=== PATIENT | female | born 1970 | race Caucasian/White ===

== ENCOUNTER 2024-09-26 08:48 | Outpatient (AMB) | payer OTHER, SELFPAY ==
--- NOTE | 2024-09-26 09:02 | A.OFFPC_ITS ---
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 Care Intake Note: New patient visit Hospice Spiritual Care Coordinator Required: No Allergies No Known Allergies Allergy (Verified 09/26/24 09:02) Tobacco use date assessed: 09/26/24 Dental Screening Dental Screen Date: 09/26/24 Did you have a dental visit in the last 12 months?: No Did you have a dental problem in the last 6 months where you did not have access to dental care?: No Was dental information given to patient?: Patient has dentist HPI 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 General: States that she is frustrated with her weight. She is very careful with her diet and exercise and has a hard time losing weight and if anything, has been gaining weight. She does not like this. States that she has tried etzd-ooh-pnlccla supplements in his unable to lose weight. She follows a low carb diet. Psych: She was previously on Lexapro 20 mg and used Ativan only as needed a few times. States that for the last few months she has been off of Lexapro and would like to go back on this. It was very helpful for management of the anxiety and depression. Neuro: Has a history of migraines and follow up with [facility] neurology. Migraines were resolved with Lexapro. Endo: Has a history of hypothyroidism and is on levothyroxine 50 mcg daily. Compliant with vitamin-D as she has a history of vitamin-D deficiency. Mammo: Carleen 06/2024 Manager Program: follows with Carleen-perimenopausal [facility] Surgical History (Updated 09/26/24 @ 09:18 by Estefany Warner CMA) No pertinent past surgical history Family History (Updated 09/26/24 @ 09:17 by Estefany Warner CMA) Mother Hypothyroidism Father Heart failure Pacemaker Paternal Grandfather Pacemaker Social History (Updated 09/26/24 @ 09:19 by Estefany Warner CMA) Housing: House Alcohol intake: never Patient Tobacco Use Status: Never used Tobacco e-Cigarette/Vaping Use: Never Used Second Hand Smoke Exposure: No service: No Current occupational status: employed 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 1. Little interest or pleasure in doing things: not at all 2. Feeling down, depressed, or hopeless: not at all 3. Trouble falling or staying asleep, or sleeping too much: several days 4. Feeling tired or having little energy: several days 5. Poor appetite or overeating: not at all 6. Feeling bad about yourself - or that you are a failure or have let yourself or your family down: not at all 7. Trouble concentrating on things, such as reading the newspaper or watching television: not at all 8. Moving or speaking so slowly that other people could have noticed. Or the opposite - being so fidgety or restless that you have been moving around a lot more than usual: not at all 9. Thoughts that you would be better off or of hurting yourself in some way: not at all Total score: 2 Depression Screening Interpretation: Negative Depression Screening Done: Yes 47439 - PHQ-9 Billing: Yes Source: Developed by Drs. Wm Brizuela, Nataliia Ugalde, Baldomero Solis and colleagues, with an educational kei from [employer]. Thrive Questionnaire Date Thrive assessed: 09/25/24 I am a: Patient What is your living situation today?: I have a steady place to live Within the past 12 months, did the food you bought not last and you didn't have the money to get more?: Never true Within the past 12 months, did you worry whether your food would run out before you got money to buy more?: Never true Do you have trouble paying for medicines?: No Do you have trouble getting transportation to medical appointments?: No Do you have trouble paying your heating and electricity bill?: No Do you have trouble taking care of your child, family member or friend?: No Do you have trouble with day-to-day activities such as bathing, preparing meals, shopping, managing finances, etc.?: No Are you currently unemployed and looking for a job?: No Are you interested in more education?: I choose not to answer this question Please select the resources that you would like help with: None Currently or been in a relationship where the following occur: No concerns reported THRIVE Score: 0 AUDIT C Alcohol Use Questionnaire (AUDIT-C) 1. How often do you have a drink containing alcohol?: Never Total Score: 0 VIJAY-7 AMB Questionnaire VIJAY-7 Date VIJAY - 7 assessed: 09/26/24 Feeling nervous, anxious, or on edge: 0 = Not at all Not being able to stop or control worryin = Not at all Worrying too much about different things: 0 = Not at all Trouble relaxin = Not at all Being so restless that it is hard to sit still: 0 = Not at all Becoming easily annoyed or irritable: 0 = Not at all Feeling afraid as if something awful might happen: 0 = Not at all Total VIJAY-7 score (0-4 normal; 5-9 mild; 10-14 moderate; 15-21 severe): 0 Source: Developed by Drs. Wm Brizuela, Nataliia Ugalde, Baldomero Solis and colleagues, with an educational kei from [employer]. VIJAY-7 Assessment Billing VIJAY-7 Assessment Tool: VIJAY-7 Assessment 18093 Physical exam (Primary Care) Vital Signs: Last Vital Signs Pulse 78 09/26/24 09:12 Resp 12 09/26/24 09:12 BP 102/76 09/26/24 09:12 Pulse Ox 98 09/26/24 09:12 Oxygen Delivery Method Room Air 09/26/24 09:12 BMI result Body Mass Index 29.1 Tobacco/Smoking Status: Tobacco use Status Tobacco use date assessed 09/26/24 09/26/24 09:11 Patient Tobacco Use Status Never used Tobacco 09/26/24 09:19 e-Cigarette/Vaping Use Never Used 09/26/24 09:19 PHQ-9: PHQ-9 Score PHQ-9: Total score 2 09/26/24 09:23 Depression Screening Interpretation: Negative Thrive Assessment: Date of Thrive Assessment Date Thrive assessed 09/25/24 09/26/24 09:11 Currently or been in a relationship where the following occur: No concerns reported Const Orientation/consciousness: patient oriented x3 HENMT Ears: hearing grossly normal bilaterally Neck Thyroid: Thyroid normal Lymphatic: no lymphadenopathy noted Resp Auscultation: clear to auscultation bilaterally Cardio Rate: regular rate Rhythm: regular rhythm Heart sounds: S1 normal heart sound present and S2 normal heart sound present GI Inspection: Yes normal to inspection Palpation (GI): Soft to palpation and Other GI palpation findings present (nontender, no cva tenderness) Auscultation: normoactive bowel sounds Rectal Exam - Female: deferred Skin General skin exam: no rashes or lesions noted Neuro General: patient oriented x3, gait normal and no focal motor deficits Coding Level of Care Code Est Pt Level 4 (44068) Complex EM visit Add On G2211 Diagnoses Anxiety with depression F41.8 Migraines G43.909 Hypothyroid E03.9 Perimenopausal N95.1 Additional Codes VIJAY-7 Assessment Billing - VIJAY-7 Assessment Tool: VIJAY-7 Assessment 10132 ([id number]) PHQ-9 - 12038 - PHQ-9 Billing: Yes ([id number]) Assessment & Plan Assessment & Plan (1) Anxiety with depression: Code(s): F41.8 - Other specified anxiety disorders Category: Medical Plan: We will restart Lexapro. Discussed risks and benefits and adverse effects of this medication. (2) Migraines: Code(s): G43.909 - Migraine, unspecified, not intractable, without status migrainosus Category: Medical Plan: We will monitor and assess for improvement with the Lexapro. (3) Hypothyroid: Code(s): E03.9 - Hypothyroidism, unspecified Category: Medical Plan: TSH ordered. (4) Perimenopausal: Code(s): N95.1 - Menopausal and female climacteric states Category: Medical Plan: Following with gynecology. Plan Advised to contact her insurance plan for covered regarding prescription weight loss drugs. She will let me know. Offered referral to sales and marketing analyst but declines at this point. Orders: Orders Complete Blood Count Auto Diff Today E03.9 - Hypothyroidism, unspecified, F41.8 - Other specified anxiety disorders, G43.909 - Migraine, unspecified, not intractable, without status migrainosus, N95.1 - Menopausal and female climacteric states Lipid Panel Today E03.9 - Hypothyroidism, unspecified, F41.8 - Other specified anxiety disorders, G43.909 - Migraine, unspecified, not intractable, without status migrainosus, N95.1 - Menopausal and female climacteric states TSH reflex Free T4 Today E03.9 - Hypothyroidism, unspecified, F41.8 - Other specified anxiety disorders, G43.909 - Migraine, unspecified, not intractable, without status migrainosus, N95.1 - Menopausal and female climacteric states Magnesium Today E03.9 - Hypothyroidism, unspecified, F41.8 - Other specified anxiety disorders, G43.909 - Migraine, unspecified, not intractable, without status migrainosus, N95.1 - Menopausal and female climacteric states Comprehensive [place]. Panel Fast Today E03.9 - Hypothyroidism, unspecified, F41.8 - Other specified anxiety disorders, G43.909 - Migraine, unspecified, not intractable, without status migrainosus, N95.1 - Menopausal and female climacteric states Vitamin B12 and Folate Today E03.9 - Hypothyroidism, unspecified, F41.8 - Other specified anxiety disorders, G43.909 - Migraine, unspecified, not intractable, without status migrainosus, N95.1 - Menopausal and female climacteric states UA CC w/rflx Micro + Cult Today E03.9 - Hypothyroidism, unspecified, F41.8 - Other specified anxiety disorders, G43.909 - Migraine, unspecified, not intractable, without status migrainosus, N95.1 - Menopausal and female climacteric states, Z13.220 - Encounter for screening for lipoid disorders Medications: New escitalopram oxalate (Lexapro) take 1/2 tab po x 2 weeks then increase to 1 tab po daily 10 mg PO DAILY 90 tabs 1RF levothyroxine 50 mcg PO DAILY 90 tabs 2RF
[2024-09-26 09:12] VITALS: BP 102/76; PULSE 78; RESP 12; O2SAT 98; BMI 29.1
--- OUTSIDE RECORDS SUMMARY | 2024-09-26 09:33 | XMS_ITS | Clinical Summary ---
Author Organization [address] Building Address [address] [place] [phone] Phone Care Team Providers Care A Operator Name Role Phone Loraine Harris MD Primary Care Provider Allergies No known active allergies Medications levothyroxine (SYNTHROID, LEVOTHROID) 50 mcg tablet Take 1 Tablet by mouth every morning (before breakfast). 04/20/2023 Active escitalopram (LEXAPRO) 20 mg tablet Take 1 Tablet by mouth daily. 07/06/2022 Active vit C/vit E/lutein/min/om ega-3 (OCUVITE ORAL) Take by mouth. Active cholecalciferol (VITAMIN D-3) 50 mcg (2,000 unit) capsule Take 2,000 Units by mouth. 11/12/2016 Active Active Problems Problem Noted Date Diagnosed Date Depression 07/26/2024 Hyperlipemia 06/27/2020 Migraine syndrome 05/20/2017 Vitamin D deficiency 09/29/2015 Hypothyroid 09/28/2015 Low back pain 09/26/2015 TMJ (temporomandibular joint syndrome) 6 Immunizations Name Administration Dates Next Due Influenza Quadravalent, MDCK , 0.5ml, preservative free (Flucelvax) 6mo and older 07/06/2022,06/27/2020 Td Tetanus diptheria (Tdvax) 7yo and older 01/08 Surgical History Surgery Date Site/Laterality Comments TUBAL LIGATION 2004 PROCEDURE: HISTORICAL TUBAL LIGATION OTHER SURGICAL HISTORY PROCEDURE: HISTORICAL D&C; COMMENT: SAB in second trimester OTHER SURGICAL HISTORY 2003 Bilateral PROCEDURE: IMPLANT BREAST SILICONE/EQ; COMMENT: saline Medical History Medical History Date Comments Low back pain 09/26/2015 DX:Low back pain TMJ (temporomandibular joint syndrome) 09/26/2015 DX:TMJ (temporomandibular joint syndrome) BPPV (benign paroxysmal posi tional vertigo) DX:BPPV (benign paroxysmal p ositional vertigo) Hypothyroid 09/28/2015 DX:Hypothyroid Vitamin D deficiency 09/29/2015 DX:Vitamin D deficiency Depression DX:Depression Family History Medical History Relation Name Comments Other: pacermaker Father Thyroid disease Mother arthritis Other: pacemaker Paternal Grandfather Arthritis Sister Breast cancer Neg Hx Colon cancer Neg Hx Ovarian cancer Neg Hx Uterine cancer Neg Hx Relation Name Status Comments Father Alive Maternal Grandfather Maternal Grandmother Mother Alive Paternal Grandfather Paternal Grandmother Sister Alive Social History Tobacco Use Types Packs/Day Years Used Date Smoking Tobacco: Never Smokeless Tobacco: Never Alcohol Use Standard Drinks/Week Comments No 0 (1 standard drink = 0.6 oz pur e alcohol) Comments Unknown Sex and Gender Information Value Date Recorded Sex Assigned at Not on file Legal Sex Female 3:57 AM EST Gender Identity Not on file Sexual Orientation Not on file Obstetrics History Last Filed Vital Signs Vital Sign Reading Time Taken Comments Blood Pressure 134/85 07/06/2022 4:01 PM EST Pulse 84 07/06/2022 4:01 PM EST Temperature - - Respiratory Rate - - Oxygen Saturation - - Inhaled Oxygen Concentration - - Weight 68.9 kg (152 lb) 07/06/2022 4:01 PM EST Height 154.9 cm (5' 1 ) 07/06/2022 4:01 PM EST Body Mass Index 28.72 07/06/2022 4:01 PM EST Plan of Treatment Upcoming Encounters Date Type Department Care Team (Late st Contact Info) Description 12/19/2024 11:15 AM EDT Office Visit Obstetrics and Gynecology - [place] [address] [place] [phone] Sanjeev Aguilera CNM [address] [place] [phone] 05/03/2025 4:30 PM EDT Appointment Radiology Department [address] [phone] Health Maintenance Due Date Last Done Comments Hepatitis B Vaccines (1 of 3 - 19+ 3-dose series) 1988 Pneumococcal Vaccine: 50+ Years (1 of 1 - PCV) 11/10/2019 Zoster Vaccines (1 of 2) 11/10/2019 Depression Screening 07/03/2022 HIV Screening 07/03/2022 Social Influencers of Health Screening 07/03/2022 COVID-19 Vaccine ( - season) 2024 12/04/2020, 11/05/2020 Influenza Vaccine (#1) 2024 07/06/2022, 2019 Breast Cancer Screening 04/20/2026 04/20/20, 04/20/2024, 07/17/2022, Additional history exists Cervical Cancer Screening: HPV 09/04/2026 09/04/2021 Cholesterol Screening (Lipid Panel) 10/09/2027 10/08/2022 Colorectal Cancer Screening: Colonoscopy 07/11/2030 07/11/2020 DTaP,Tdap,and Td Vaccines (2 - Td or Tdap) 01/09/2032 01/08/2022 Hepatitis C Screening Completed 10/08/2022 HIB Vaccines Aged Out No longer eligi ble based on patient's age to complete this topic HPV Vaccines Aged Out No longer eligi ble based on patient's age to complete this topic Hepatitis A Vaccines Aged Out No long er eligible based on patient's age to complete this topic IPV Vaccines Aged Out No longer eligi ble based on patient's age to complete this topic MMR Vaccines Aged Out No longer eligi ble based on patient's age to complete this topic Meningococcal ACWY Vaccine Aged Out N o longer eligible based on patient's age to complete this topic Meningococcal B Vacine Aged Out No lo nger eligible based on patient's age to complete this topic Pneumococcal Vaccine: Pediatrics (0 to 5 Years) and At-Risk Patients (6 to 64 Years) Aged Out No longer eligible based on patient's age to complete this topic RSV Immunization Patients Under 20 months Aged Out No longer eligible based on patient's age to complete this topic Varicella Vaccines Aged Out No longer eligible based on patient's age to complete this topic Procedures Procedure Name Priority Date/Time Associated Diagnosis Comments SCREENING MAMMOGRAPHY BI 2-VIEW BREAST INC CAD Routine 04/20/2024 4:30 PM EDT Encounter for screening mammogram for malignant neoplasm of breast HEPATITIS C SCREENING Routine 10/08/2022 LIPID PANEL Routine 10/08/2022 HPV Routine 09/04/2021 COLONOSCOPY Routine 07/11/2020 from Last 3 Months or Most Recently Relevant to Health Maintenance Results * SCREENING MAMMOGRAPHY BI 2-VIEW BREAST INC CAD (04/20/2024 4:30 PM EDT) Anatomical Region Laterality Modality Radiographic Linda ging 07/17/2022 9:52 AM EST Narrative 04/21/2024 3:07 PM EDT This is a summary report. The complete report is available in the patient's medical record. If you cannot access the medical record, please contact the sending organization for a detailed fax or copy. Full field digital screening tomosynthesis mammography without and with implants displacement, reviewed with CAD and compared to previous. The breasts are composed of fatty and fibroglandular tissue. ??No suspicious mass, architectural distortion or suspicious calcifications are identified. ??Implants are maintained. IMPRESSION: : No mammographic evidence of malignancy. BIRADS 1-Negative; N. Breast density: The breasts have scattered areas of fibroglandular density. 5 year breast cancer risk assessment 1.3 % Lifetime breast cancer risk assessment 9.3 % Breast cancer risk category Low (<15%) Location: [facility], [address] [place] [address], [address], [phone] Procedure Note Jaclyn Sevilla MD - 06/18/2024 This is a summary report. The complete report is available in thepatient's medical record. If you cannot access the medical record, pleasecontact the sending organization for a detailed fax or copy. Full field digital screening tomosynthesis mammography without and withimplants displacement, reviewed with CAD and compared to previous. Thebreasts are composed of fatty and fibroglandular tissue. No suspiciousmass, architectural distortion or suspicious calcifications areidentified. Implants are maintained. IMPRESSION: : No mammographic evidence of malignancy. BIRADS 1-Negative; N. Breast density: The breasts have scattered areas of fibroglandulardensity. 5 year breast cancer risk assessment 1.3 % Lifetime breast cancer risk assessment 9.3 % Breast cancer risk category Low (<15%) Location: [facility], [address] [place] [address], [phone], [phone] Malathi Boothe MD IMG XR PROCEDURES Final Result * Hepatitis C Screening (10/08/2022) [facility] Hepatitis C Screening abstracted Result [facility] Historical Provider HEALTH MAINTENANCE Final Result * (ABNORMAL) Lipid panel (10/08/2022) [facility] LDL/HDL Ratio 3 0 - 4 Triglycerides 156(A) 0 - 150 mg/dL Cholesterol 212(A) 0 - 200 mg/dL HDL 65 >=40 mg/dL LDL Cholesterol 116(A) 0 - 100 mg/dL Blood Venous blood specimen / Unknown Result [facility] Historical Provider LAB BLOOD ORDERABLES Roz l Result * Cervical Cancer Screening: HPV (09/04/2021) [facility] Cervical Cancer Screening: HPV negative, abstracted Historical Provider HEALTH MAINTENANCE Final Result * Colonoscopy (07/11/2020) [facility] Colonoscopy no interpretation , abstracted Anatomical Region Laterality Modality Other [facility] Provider HEALTH MAINTENANCE Final Result from Last 3 Months or Most Recently Relevant to Health Maintenance Insurance [facility] Care Teams A Operator Relationship Specialty Start Date End Date Loraine Harris MD [address] [place] [address] PCP - General Internal Medicine 10/09/20
--- OUTSIDE RECORDS SUMMARY | 2024-09-26 09:33 | XMS_ITS | Clinical Summary ---
Author Organization [facility] Address [address] [place] [address] Care Team Providers Care Caustic Plant Worker Name Role Phone Unavailable Primary Care Provider Unavailabl e Source Comments PLEASE NOTE, if this patient is a minor, it may be UNLAWFUL to discuss sensitive information that is contained in these records (such as FAMILY PLANNING, MENTAL HEALTH or SUBSTANCE ABUSE) with the minor patient's parent or other person without the patient's specific authorization.[facility] Immunizations Name Administration Dates Next Due Moderna COVID-19 Vaccine, re d cap blue label, 12+ Primary Series 12/04/2020,11/05/2020 Social History Tobacco Use Types Packs/Day Years Used Date Smoking Tobacco: Never Assessed Social Connections Answer Date Recorded Social Connections and Isolation 0 12/23/2023 Financial Resource Strain Answer Date R ecorded Financial Resource Strain 0 2023 Stress Answer Date Recorded Stress 0 12/23/2023 Physical Activity Answer Date Recorded Physical Activity 0 12/23/2023 Food Insecurity Answer Date Recorded Food 0 12/23/2023 Transportation Needs Answer Date Record ed Transportation 0 12/23/2023 Housing Stability Answer Date Recorded Housing 0 12/23/2023 Safety and Environment Answer Date Isaac rded Safety 0 12/23/2023 Utilities Answer Date Recorded Utilities 0 12/23/2023 Employment Answer Date Recorded Employment 0 12/23/2023 Comments Unknown Sex and Gender Information Value Date Recorded Sex Assigned at Not on file Legal Sex Female 6:16 AM PDT Gender Identity Not on file Sexual Orientation Not on file Plan of Treatment Health Maintenance Due Date Last Done Comments Diabetes Screening 1969 HPV Screening 1969 Hepatitis C Screening 1969 Pap + HPV 1969 Tobacco Screening 1969 HIV Screening 1984 Annual Preventive Care Visit 11/10/1987 Hypertension Screening (#1) 11/10/1987 Imm-DTaP/Tdap/Td (1 - Tdap) 1988 Imm-Hepatitis B (1 of 3 - 19 + 3-dose series) 1988 Cervical Cancer Screening 1990 Pap Smear 1990 Breast Cancer Screening (Mammogram) 2009 CT Colonography 2014 Colonoscopy 2014 Colorectal Cancer Screening 2014 FIT/gFOBT 2014 Fecal DNA 2014 Flexible Sigmoidoscopy 2014 Imm-Zoster, Recombinant (1 of 2) 11/10/2019 [id number] (2023- season) 2024 021, 11/05/2020 Imm-Influenza (#1) 2024 06/27/2020 Alcohol and Drug Screen 07/25/2024 Depression Annual Screen 07/25/2024 Lipid Screening 08/28/2025 08/28/2020 Cervical Ablation/Cold-Knife Conization Discontinued Cervical Cryotherapy Discontinued Colposcopy Discontinued Endometrial Biopsy Discontinued Excision/Leep Discontinued HPV Genotyping Discontinued Vaginal Pap Discontinued Vulvoscopy Discontinued Insurance BLUE CROSS/[place] Subscriber Plan / Payer (Ef fective 2020-Present) Name:Angelica Gallegos Relation to Subscriber:Self Name:Angelica Gallegos Payer ID:[id number] Type:Indemnity Address: [facility] [id number] [place] [address]
== END 2024-09-26 09:57 | disposition home or self-care (01) ==
PROVIDERS: PCP Physician Assistant; Visit Provider Physician Assistant
DX: F41.8 Other specified anxiety disorders (principal); G43.909 Migraine, unspecified, not intractable, without status migrainosus; E03.9 Hypothyroidism, unspecified; N95.1 Menopausal and female climacteric states

== ENCOUNTER → 2024-09-26 08:48 | Outpatient (BNVA) | payer OTHER, SELFPAY | PROVIDERS: PCP Physician Assistant; Visit Provider Physician Assistant | DX: F41.8 Other specified anxiety disorders (principal); G43.909 Migraine, unspecified, not intractable, without status migrainosus; E03.9 Hypothyroidism, unspecified; N95.1 Menopausal and female climacteric states | CPT/HCPCS: 96127 ==

== ENCOUNTER 2024-09-26 10:13 | Outpatient (REF) | payer OTHER, SELFPAY ==
[2024-09-26 11:36] LABS: Appearance Urine Clear; Color Urine Yellow; Glucose Urine UA Negative (Negative); Leukocyte Esterase Urine Negative (Negative); Nitrite Urine Negative (Negative); Urine Blood Negative (Negative); Urine Ketones Negative (Negative); Urine Protein Negative (Neg-Trace)
[2024-09-26 11:57] LABS: MANUAL DIFF FLAG NO
[2024-09-26 12:00] LABS: Basophils Percent Auto 0.8 % (0-2); Eosinophils Absolute Auto 0.1 X10*3/uL (0.0-0.4); Eosinophils Percent Auto 1.5 % (0-4); Hematocrit 43.5 % (37.0-47.0); Hemoglobin 14.7 g/dl (12.0-16.0); Imm Gran Abs Auto 0.02 X10*3/uL (0.00-0.03); Imm Gran Pct Auto 0.4 % (0.0-0.4); Lymphocytes Absolute Auto 1.5 X10*3/uL (1.2-4.9); Lymphocytes Percent Auto 32.1 % (20-40); Mean Corpuscular HGB Conc 33.8 g/dl (31.0-35.0); Mean Corpuscular Hemoglobin 31.1 pg (27.0-33.0); Mean Corpuscular Volume 92.2 fL (80.0-98.0); Mean Platelet Volume 9.5 fL (9.4-12.3); Monocytes Absolute Auto 0.3 X10*3/uL (0.1-1.2); Monocytes Percent Auto 6.7 % (2-11); Neutrophils Absolute Auto 2.8 x10*3/uL (2.0-8.3); Neutrophils Percent Auto 58.5 % (45-73); Platelet Count 280 X10*3/uL (160-400); Red Blood Count 4.72 X10*6/uL (4.20-5.50); Red Cell Distribution Width 12.8 % (11.0-16.0); White Blood Count 4.8 X10*3/uL (4.8-10.8)
--- OUTSIDE RECORDS SUMMARY | 2024-09-26 12:05 | XMS_ITS | Clinical Summary ---
Author Organization [facility] Address [address] [place] [address] Care Team Providers Care Missileman Name Role Phone Unavailable Primary Care Provider [...] 2014 Imm-Zoster, Recombinant (1 of 2) 11/10/2019 [id number] (2023- season) 2024 021, 11/05/2020 Imm-Influenza (#1) [...] Subscriber:Self Name:Angelica Gallegos Payer ID:[id number] Type:Indemnity Address: [facility] [id number] [place] [address]
--- OUTSIDE RECORDS SUMMARY | 2024-09-26 12:05 | XMS_ITS | Clinical Summary ---
Author Organization [address] Building Address [address] [place] [phone] Phone Care Team Providers Care Surgical Appliance Fitter Name Role Phone Loraine Harris MD Primary Care Provider [phone] Allergies No known active allergies Medications levothyroxine [...] EDT Office Visit Obstetrics and Gynecology - [address] [place] [phone] Sanjeev Aguilera CNM [address] [place] [phone] 05/03/2025 4:30 PM EDT Appointment Radiology Department [address] [phone] Health Maintenance Due Date Last Done Comments [...] Breast cancer risk category Low (<15%) Location: [facility], [address] [place] [address], [phone], [phone] Procedure Note Jaclyn Sevilla MD - 06/18/2024 [...] Breast cancer risk category Low (<15%) Location: [facility], [address] [place] [address], [phone], [phone] Malathi Boothe MD IMG XR PROCEDURES Final Result * Hepatitis C Screening (10/08/2022) [facility] Hepatitis C Screening abstracted Result [facility] Historical Provider HEALTH MAINTENANCE Final Result * (ABNORMAL) Lipid panel (10/08/2022) [facility] LDL/HDL Ratio 3 0 - 4 Triglycerides 156(A) 0 - 150 mg/dL Cholesterol 212(A) 0 - 200 mg/dL HDL 65 >=40 mg/dL LDL Cholesterol 116(A) 0 - 100 mg/dL Blood Venous blood specimen / Unknown Result [facility] Historical Provider LAB BLOOD ORDERABLES Roz l Result * Cervical Cancer Screening: HPV (09/04/2021) [facility] Cervical Cancer Screening: HPV negative, abstracted Historical Provider HEALTH MAINTENANCE Final Result * Colonoscopy (07/11/2020) [facility] Colonoscopy no interpretation , abstracted Anatomical Region Laterality Modality Other [facility] Provider HEALTH MAINTENANCE Final Result from Last 3 Months or Most Recently Relevant to Health Maintenance Insurance [facility] Care Teams Surgical Appliance Fitter Relationship Specialty Start Date End Date Loraine Harris MD [address] [place] [address] PCP - General Internal Medicine 10/09/20
[2024-09-26 13:14] LABS: Alanine Aminotransferase 30 U/L (0-31); Albumin Level 4.2 g/dL (3.5-5.0); Alkaline Phosphatase 87 U/L (39-117); Anion Gap 11 (12-20); Aspartate Amino Transferase 28 U/L (5-31); Bilirubin Total 0.4 mg/dL (0.0-1.0); Blood Urea Nitrogen 8 mg/dL (9-16); Calcium 9.5 mg/dL (8.4-10.2); Carbon Dioxide 28 mmol/L (22-29); Chloride 108 mmol/L (96-108); Cholesterol 235 mg/dL (<200); Estimated Glomerular Filt Rate > 60; Glucose Fasting 76 mg/dL (60-99); HDL Cholesterol 71 mg/dL (>40); LDL Cholesterol Calculated 149 mg/dL (<100); Magnesium 2.1 mg/dL (1.6-2.6); Sodium 143 mmol/L (135-145); TSH reflex Free T4 1.85 uIU/mL (0.32-4.0); Total Protein 7.5 g/dL (6.5-8.0); Triglycerides 76 mg/dL (<150)
[2024-09-26 13:18] LABS: Folate 14.8 ng/mL (> or = 4.0); Vitamin B12 466 pg/mL (200-900)
== END 2024-09-26 10:14 | disposition home or self-care (01) ==
LOC: HO.WFDLDS 10:13
PROVIDERS: Visit Provider Physician Assistant
DX: F41.8 Other specified anxiety disorders (principal); G43.909 Migraine, unspecified, not intractable, without status migrainosus; E03.9 Hypothyroidism, unspecified; N95.1 Menopausal and female climacteric states; Z13.220 Encounter for screening for lipoid disorders
CPT/HCPCS: 36415; 80053; 80061; 81003; 82607; 82746; 83735; 84443; 85025

== ENCOUNTER 2025-02-28 15:01 | Outpatient (AMB) | payer OTHER, SELFPAY ==
--- OUTSIDE RECORDS SUMMARY | 2025-02-28 15:05 | XMS_ITS | Clinical Summary ---
Author Organization [facility] [address] [facility] [address] Address [address] [place] [address] Phone Care Team Providers Care Computer Application Developer Name Role Phone Loraine Harris MD Primary Care Provider [phone] Allergies No known active allergies Medications levothyroxine [...] Care Team (Late st Contact Info) Description 05/03/2025 4:30 PM EDT Appointment Radiology Department - [address] [phone] Health Maintenance Due Date Last Done Comments Hepatitis B Vaccines (1 of 3 - 19+ 3-dose series) 1988 Pneumococcal Vaccine: 50+ Years (1 of 1 - PCV) 11/10/2019 Zoster Vaccines (1 of 2) 11/10/2019 HIV Screening 07/03/2022 Social Influencers of Health Screening 07/03/2022 COVID-19 Vaccine (3 - 4-25 season) 2024 12/04/2020, 11/05/2020 Depression Screening 07/25/2024 Influenza Vaccine (#1) 2025 07/06/2022, 2019 Breast Cancer Screening 04/20/2026 04/20/20 24, 04/20/2024, 07/17/2022, Additional history exists Cervical Cancer [...] age to complete this topic Meningococcal B Vaccine Aged Out No l onger eligible based on patient's age to complete [...] composed of fatty and fibroglandular tissue. No suspicious mass, architectural distortion or suspicious calcifications are identified. Implants are maintained. IMPRESSION: : No mammographic evidence of malignancy. BIRADS 1-Negative; N. Breast density: The breasts have scattered areas of fibroglandular density. 5 year breast cancer risk assessment 1.3 % Lifetime breast cancer risk assessment 9.3 % Breast cancer risk category Low (<15%) Location: [facility], [address] [place] [address], [phone], [phone] Procedure Note Jaclyn Sevilla MD - 06/18/2024 [...] Breast cancer risk category Low (<15%) Location: [facility], [address] [place] [address], [address], [phone] Malathi Boothe MD IMG XR PROCEDURES Final Result * Hepatitis C Screening (10/08/2022) [facility] Hepatitis C Screening abstracted Result [facility] Historical Provider HEALTH MAINTENANCE Final Result * (ABNORMAL) Lipid panel (10/08/2022) [facility] LDL/HDL Ratio 3 0 - 4 Triglycerides 156(A) 0 - 150 mg/dL Cholesterol 212(A) 0 - 200 mg/dL HDL 65 >=40 mg/dL LDL Cholesterol 116(A) 0 - 100 mg/dL Blood Venous blood specimen / Unknown Result [facility] Historical Provider LAB BLOOD ORDERABLES Roz l Result * Cervical Cancer Screening: HPV (09/04/2021) [facility] Cervical Cancer Screening: HPV negative, abstracted Result [facility] Historical Provider HEALTH MAINTENANCE Final Result * Colonoscopy (07/11/2020) [facility] Colonoscopy no interpretation , abstracted Anatomical Region Laterality Modality Other Result [facility] Historical Provider HEALTH MAINTENANCE Final Result from Last 3 Months or Most Recently Relevant to Health Maintenance Insurance [facility] Care Teams Computer Application Developer Relationship Specialty Start Date End Date Loraine Harris MD [address] [place] [id number] PCP - General Internal Medicine 10/09/20
--- OUTSIDE RECORDS SUMMARY | 2025-02-28 15:05 | XMS_ITS | Clinical Summary ---
Author Organization [facility] Address [address] [place] [address] Care Team Providers Care Caterpillar Operator Name Role Phone Unavailable Primary Care Provider Unavailabl e Source Comments PLEASE NOTE, if this patient is a minor, it may be UNLAWFUL to discuss sensitive information that is contained in these records (such as FAMILY PLANNING, MENTAL HEALTH or SUBSTANCE ABUSE) with the minor patient's parent or other person without the patient's specific authorization.[facility] Immunizations Immunization Administration Dates Next Due Moderna COVID-19 Vaccine, [...] Health Maintenance Due Date Last Done Comments Anxiety Screening 1969 Diabetes Screening 1969 HPV Screening 1969 Hepatitis C Screening 1969 Pap + HPV 1969 Tobacco Screening 1969 HIV Screening 1984 Hypertension Screening (#1) 11/10/1987 Imm-DTaP/Tdap/Td (1 - Tdap) 1988 Imm-Hepatitis B (1 of 3 - 19 + 3-dose series) 1988 Cervical Cancer Screening 1990 Pap Smear 1990 Breast Cancer Screening (Mammogram) 2009 CT Colonography 2014 Colonoscopy 2014 Colorectal Cancer Screening 2014 FIT/gFOBT 2014 Fecal DNA 2014 Flexible Sigmoidoscopy 2014 Imm-Pneumococcal 50+ (1 of 1 - PCV) 11/10/2019 Imm-Zoster, Recombinant (1 of 2) 11/10/2019 [id number] (3 2023- season) 2024 021, 11/05/2020 Alcohol and Drug Screen 07/25/2024 Depression Annual Screen 07/25/2024 Imm-Influenza (#1) 2025 06/27/2020 Lipid Screening 08/28/2025 08/28/2020 Cervical Ablation/Cold-Knife Conization Discontinued Cervical Cryotherapy Discontinued Colposcopy Discontinued Endometrial Biopsy Discontinued Excision/Leep Discontinued HPV Genotyping Discontinued Vaginal Pap Discontinued Vulvoscopy Discontinued [place]
--- OUTSIDE RECORDS SUMMARY | 2025-02-28 15:05 | XMS_ITS ---
Author Name [facility] Organization Unknown Care Team Organization Name Specialty Phone Email Start Date End Da te [facility] Loraine Harris Primary Care 06/01/2022 4
--- NOTE | 2025-02-28 15:17 | MHC.PC.OV ---
Vital Signs 02/28/25 15:19 Height 5 ft 1.81 in Weight 153 lb 8 oz BMI 28.2 BP 108/72 Blood Pressure Location Rt brachial Position Sitting Respiration 12 Pulse 87 Pulse Source Pulse Oximeter Pulse Oximetry (%) 97 Oxygen Delivery Method Room Air Intake Visit Reasons: labs and med Intake Note: Medication follow up. Forgot to have labs done. Crab Butcher Required: No Allergies No Known Allergies Allergy (Verified 02/28/25 15:18) Medication List - Last Reconciled 02/28/25 by Chana Maldonado PA-C escitalopram oxalate (Lexapro) 20 mg PO DAILY levothyroxine 50 mcg PO DAILY Tobacco use date assessed: 02/28/25 Dental Screening Dental Screen Date: 09/26/24 HPI labs and med HPI Details Patient is a 53-year-old female with a significant past medical history of anxiety, depression, vitamin-D deficiency, hypothyroidism, hyperlipidemia migraines presenting today for a follow up. msk: she states that after our first visit she started to develop joint pains and muscle aches. She states that her hips are stiff and achy in her hands. She denies any trauma. No swelling. No radiation of the pain. She has not tried much for this. No numbness, tingling or weakness. General: States that she is frustrated with her weight and has been feeling more tired. She says by the middle of the afternoon she feels like she hits a brick wall and needs to sleep. She is very careful with her diet and exercise and has a hard time losing weight. She has been following a low carb diet and exercising since our last visit and states that she is frustrated that she has only lost a few lb. States that she has tried [id number]-[id number] supplements in his unable to lose weight. She follows a low carb diet. She wants to try a weight loss drug. Psych: She is currently on Lexapro 10 mg and states that it is helpful but she thinks that it could be better. Neuro: Has a history of migraines and follow up with [facility] neurology. Migraines were resolved with Lexapro. Endo: Has a history of hypothyroidism and is on levothyroxine 50 mcg daily. Compliant with vitamin-D as she has a history of vitamin-D deficiency. 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 Current occupational exposures/hazards: No Cognitive needs: No Hearing needs: No Vision needs: Yes (glasses) Questionnaire Thrive Questionnaire Date Thrive assessed: 09/25/24 I am a: Patient What is your living situation today?: I have a steady place to live Within the past 12 months, did the food you bought not last and you didn't have the money to get more?: Never true Within the past 12 months, did you worry whether your food would run out before you got money to buy more?: Never true Do you have trouble paying for medicines?: No Do you have trouble getting transportation to medical appointments?: No Do you have trouble paying your heating and electricity bill?: No Do you have trouble taking care of your child, family member or friend?: No Do you have trouble with day-to-day activities such as bathing, preparing meals, shopping, managing finances, etc.?: No Are you currently unemployed and looking for a job?: No Are you interested in more education?: I choose not to answer this question Please select the resources that you would like help with: None Currently or been in a relationship where the following occur: No concerns reported THRIVE Score: 0 VIJAY-7 AMB Questionnaire VIJAY-7 Date VIJAY - 7 assessed: 09/26/24 Source: Developed by Drs. Wm Brizuela, Nataliia Ugalde, Baldomero Solis and colleagues, with an educational kei from [employer]. Physical exam (Primary Care) Vital Signs: Last Vital Signs Pulse 87 02/28/25 15:19 Resp 12 02/28/25 15:19 BP 108/72 02/28/25 15:19 Pulse Ox 97 02/28/25 15:19 Oxygen Delivery Method Room Air 02/28/25 15:19 BMI result Body Mass Index 28.2 Tobacco/Smoking Status: Tobacco use Status Tobacco use date assessed 02/28/25 02/28/25 15:21 Patient Tobacco Use Status Never used Tobacco 02/28/25 15:21 e-Cigarette/Vaping Use Never Used 02/28/25 15:21 Thrive Assessment: Date of Thrive Assessment Date Thrive assessed 09/25/24 02/28/25 15:17 Currently or been in a relationship where the following occur: No concerns reported Const Orientation/consciousness: patient oriented x3 HENMT Ears: hearing grossly normal bilaterally Neck Thyroid: Thyroid normal Lymphatic: no lymphadenopathy noted Resp Auscultation: clear to auscultation bilaterally Cardio Rate: regular rate Rhythm: regular rhythm Heart sounds: S1 normal heart sound present and S2 normal heart sound present GI Inspection: Yes normal to inspection Palpation (GI): Soft to palpation and Other GI palpation findings present (nontender, no cva tenderness) Auscultation: normoactive bowel sounds Rectal Exam - Female: deferred Skin General skin exam: no rashes or lesions noted Neuro General: patient oriented x3, gait normal and no focal motor deficits Coding Level of Care Code Est Pt Level 4 (80677) Complex EM visit Add On G2211 Diagnoses Anxiety with depression F41.8 Hypothyroid E03.9 Perimenopausal N95.1 Fatigue R53.83 Bilateral hand pain M79.641; M79.642 Bilateral hip pain M25.551; M25.552 Overweight (BMI 25.0-29.9) E66.3 Assessment & Plan Assessment & Plan (1) Anxiety with depression: Code(s): F41.8 - Other specified anxiety disorders Category: Medical Plan: Increase Lexapro to 20 mg (2) Hypothyroid: Code(s): E03.9 - Hypothyroidism, unspecified Category: Medical Plan: TSH ordered as she reports increase feeling tired. (3) Perimenopausal: Code(s): N95.1 - Menopausal and female climacteric states Category: Medical Plan: Referral to OBGYN (4) Fatigue: Code(s): R53.83 - Other fatigue Category: Medical Plan: Labs ordered today. We will follow up pending test results (5) Bilateral hand pain: Code(s): M79.641 - Pain in right hand; M79.642 - Pain in left hand Category: Medical Plan: As above. X-rays ordered. (6) Bilateral hip pain: Code(s): M25.551 - Pain in right hip; M25.552 - Pain in left hip Category: Medical Plan: As above (7) Overweight (BMI 25.0-29.9): Code(s): E66.3 - Overweight Category: Medical Plan: Advised to continue with a healthy lifestyle. We will trial phentermine. Discussed risks and benefits and adverse effects of this medication. We will do a short term follow up. Orders: Orders Complete Blood Count Auto Diff 02/28/25 E03.9 - Hypothyroidism, unspecified, F41.8 - Other specified anxiety disorders, N95.1 - Menopausal and female climacteric states, R53.83 - Other fatigue Comprehensive [place]. Panel Fast 02/28/25 E03.9 - Hypothyroidism, unspecified, F41.8 - Other specified anxiety disorders, N95.1 - Menopausal and female climacteric states, R53.83 - Other fatigue JEN Reflex Titer and Pattern 02/28/25 M25.551 - Pain in right hip, M25.552 - Pain in left hip, M79.641 - Pain in right hand, M79.642 - Pain in left hand IRON PROFILE 02/28/25 M25.551 - Pain in right hip, M25.552 - Pain in left hip, M79.641 - Pain in right hand, M79.642 - Pain in left hand XR hips MURALI min 3V 02/28/25 M25.551 - Pain in right hip, M25.552 - Pain in left hip Hemoglobin A1c 02/28/25 E03.9 - Hypothyroidism, unspecified, F41.8 - Other specified anxiety disorders, N95.1 - Menopausal and female climacteric states, R53.83 - Other fatigue, R73.01 - Impaired fasting glucose TSH reflex Free T4 02/28/25 E03.9 - Hypothyroidism, unspecified, F41.8 - Other specified anxiety disorders, N95.1 - Menopausal and female climacteric states, R53.83 - Other fatigue Rheumatoid Factor 02/28/25 M25.551 - Pain in right hip, M25.552 - Pain in left hip, M79.641 - Pain in right hand, M79.642 - Pain in left hand Erythrocyte Sedimentation Rate 02/28/25 M25.551 - Pain in right hip, M25.552 - Pain in left hip, M79.641 - Pain in right hand, M79.642 - Pain in left hand Vitamin B12 and Folate 02/28/25 M25.551 - Pain in right hip, M25.552 - Pain in left hip, M79.641 - Pain in right hand, M79.642 - Pain in left hand Lyme IgG/IgM w/reflex to WB 02/28/25 G43.909 - Migraine, unspecified, not intractable, without status migrainosus, M25.551 - Pain in right hip, M25.552 - Pain in left hip, M79.641 - Pain in right hand, M79.642 - Pain in left hand, R53.83 - Other fatigue XR Hand Bilat min 3v 02/28/25 M79.641 - Pain in right hand, M79.642 - Pain in left hand Referrals TAVERN KEEPER Referral Z01.419 - Encounter for gynecological examination (general) (routine) without abnormal findings Medications: New phentermine must administer 2 hours after breakfast 15 mg PO DAILY 30 caps 5RF 30 days escitalopram oxalate (Lexapro) 20 mg PO DAILY 90 tabs 1RF Discontinued escitalopram oxalate (Lexapro) take 1/2 tab po x 2 weeks then increase to 1 tab po daily Discontinued Reason: Duplicate 10 mg PO DAILY 90 tabs 1RF
[2025-02-28 15:19] VITALS: BP 108/72; PULSE 87; RESP 12; O2SAT 97; BMI 28.2
== END 2025-02-28 15:57 | disposition home or self-care (01) ==
LOC: HO.HMCFM 15:02
PROVIDERS: PCP Physician Assistant; Visit Provider Physician Assistant
DX: F41.8 Other specified anxiety disorders (principal); E03.9 Hypothyroidism, unspecified; N95.1 Menopausal and female climacteric states; R53.83 Other fatigue; M79.641 Pain in right hand; M79.642 Pain in left hand; M25.551 Pain in right hip; M25.552 Pain in left hip; E66.3 Overweight

== ENCOUNTER 2025-03-22 08:36 | Outpatient (REF) | payer OTHER, SELFPAY ==
--- OUTSIDE RECORDS SUMMARY | 2025-03-22 09:33 | XMS_ITS | Clinical Summary ---
Author Organization [facility] Address [address] [place] [address] Care Team Providers Care Cyber Analyst Name Role Phone Unavailable Primary Care Provider [...] 11/10/2019 Imm-Zoster, Recombinant (1 of 2) 11/10/2019 [id number] (3 2023- season) 2024 021, 11/05/2020 Alcohol and Drug Screen 07/25/2024 Depression Annual Screen 07/25/2024 Imm-Influenza (#1) 2025 06/27/2020 Lipid Screening 08/28/2025 08/28/2020 Cervical Ablation/Cold-Knife Conization Discontinued Cervical Cryotherapy Discontinued Colposcopy Discontinued Endometrial Biopsy Discontinued Excision/Leep Discontinued HPV Genotyping Discontinued Vaginal Pap Discontinued Vulvoscopy Discontinued Insurance [place]
--- OUTSIDE RECORDS SUMMARY | 2025-03-22 09:33 | XMS_ITS | Encounter Summary ---
Author Organization [facility] Address [address] [place] [address] Care Team Providers Care Hospice Chaplain Name Role Phone Malathi Lim MD Primary Care Provider Loraine Merlos MD Primary Care Provider [phone] Encounter Details Date Type Department Care Team Description 06/30/2020 Refill Gastroenterology [address] [place] [address] Abner Aly MD [address] [place] [address] Social History Tobacco Use Types Packs/Day Years Used Date Smoking Tobacco: Never Smokeless Tobacco: Never Alcohol Use Standard Drinks/Week Comments No 0 (1 standard drink = 0.6 oz pur e alcohol) Sex Assigned at Date Recorded Not on file Job Start Date Occupation Industry Not on file Not on file Not on file COVID-19 Exposure Response Date Recorded In the last month, have you been in contact with someone who was confirmed or suspected to have Coronavirus / COVID-19? No / Unsure 06/27/2020 1:16 PM EST documented as of this encounter Plan of Treatment Not on file documented as of this encounter Visit Diagnoses Not on filedocumented in this encounter Care Teams Hospice Chaplain Relationship Specialty Start Date End Date Malathi Lim MD PCP - General Internal Medicine 08/01/15 10/08/20 Loraine Harris MD [address] [place] [address] PCP - General Internal Medicine 10/09/20 documented as of this encounter
--- OUTSIDE RECORDS SUMMARY | 2025-03-22 09:33 | XMS_ITS | Clinical Summary ---
Author Organization [facility] Address [address] [place] [address] Care Team Providers Care Senior Information Security Engineer Name Role Phone Loraine Harris MD Primary Care Provider [phone] Allergies No known active allergies Medications Medication Sig Dispensed Refills Start Date End Date Status Cholecalciferol (VITAMIN D) 2000 UNITS Cap Take 2,000 Units by mouth. 30 Cap 0 11/12/2016 Active Multiple Vitamins-Minerals (OCUVITE OR) Take by mouth. 0 Active escitalopram (LEXAPRO) 20 MG tablet Take 1 Tablet by mouth daily. 90 Tablet 1 07/06/2022 Active levothyroxine (SYNTHROID, LEVOTHROID) 50 MCG tablet Take 1 Tablet by mouth every morning (before breakfast). 14 Tablet 0 04/20/2023 Active Active Problems Problem Noted Date Hyperlipemia 06/27/2020 Migraine syndrome 05/20/2017 Vitamin D deficiency 09/29/2015 Hypothyroid 09/28/2015 Low back pain 09/26/2015 TMJ (temporomandibular joint syndrome) 0 09/26/2015 Depression Immunizations Name Administration Dates Next Due COVID-19 (Moderna) 12/04/2020,11/05/2020 Influenza Vaccine-preservati ve Free-quadrivalent 4 Years 07/06/2022,06/27/2020 TD (STATE SUPPLIED FOR ADULTS AND CHILDREN) 12/23 Family History Medical History Relation Name Comments emleina Father Thyroid Disorder Mother arthritis pacemaker Paternal Grandfather Arthritis Sister CA Breast Negative Hx CA Colon Negative Hx CA Ovarian Negative Hx Uterine Cancer Negative Hx Relation Name Status Comments Father Alive Maternal Grandfather Maternal Grandmother Mother Alive Paternal Grandfather Paternal Grandmother Sister Alive Social History Tobacco Use Types Packs/Day Years Used Date Smoking Tobacco: Never Smokeless Tobacco: Never Tobacco Cessation:Counseling Given: Not Answered Alcohol Use Standard Drinks/Week Comments No 0 (1 standard drink = 0.6 oz pur e alcohol) Sex Assigned at Date Recorded Not on file Job Start Date Occupation Industry Not on file Not on file Not on file Last Filed Vital Signs Vital Sign Reading Time Taken Comments Blood Pressure 134/85 07/06/2022 4:01 PM EST Pulse 84 07/06/2022 4:01 PM EST Temperature 35.9 C (96.6 F) 07/06/2022 4:01 PM EST Respiratory Rate 14 06/27/2020 1:29 PM EST Oxygen Saturation 98% 04/10/2021 9:25 AM EDT Inhaled Oxygen Concentration - - Weight 68.9 kg (152 lb) 07/06/2022 4:01 PM EST Height 154.9 cm (5' 1 ) 07/06/2022 4:01 PM EST Body Mass Index 28.72 07/06/2022 4:01 PM EST Plan of Treatment Health Maintenance Due Date Last Done Comments SHINGLES VACCINE (1 of 2) 11/10/2019 BASELINE HEALTH EXAM 40-64 08/28/202208/28, 06/28/2020, 06/27/2020, Additional history exists Covid-19 Vaccine ( season) 2024 12/04/2020, 11/05/2020 BMI CHECK/ADVISE 07/25/2024 07/06/2022, , 09/04/2021, Additional history exists INFLUENZA (#1) 2025 07/06/2022, 10/2019 (Completed), 06/27/2020 MAMMOGRAM 04/20/2025 04/20/2024, 06/25, 07/10/2021, Additional history exists CERVICAL CANCER SCREENING 09/04/2026 09/04/2021, 05/2016 CHOLESTEROL SCREENING 10/09/2027 10/08/2022 , 04/10/2021, 08/28/2020, Additional history exists COLON CANCER SCREENING 07/11/2030 07/11/2020 DTAP/TDAP/TD (1 - Tdap) 01/09/2032 01/08/2022 Post poned from 01/09/2022 (Not Indicated) PNEUMOCOCCAL VACCINE FOR HIGH RISK PATIENTS (#1) 2034 HEPATITIS C SCREENING Completed 10/08/2022 Care Teams Senior Information Security Engineer Relationship Specialty Start Date End Date Loraine Harris MD [address] [place] [phone] PCP - General Internal Medicine 10/09/20
--- OUTSIDE RECORDS SUMMARY | 2025-03-22 09:34 | XMS_ITS | Encounter Summary ---
Author Organization [facility] Address [address] [place] [address] Care Team Providers Care Salesperson Burial Plots Name Role Phone Loraine Harris MD Primary Care Provider [phone] Reason for Visit * Reason Onset Date Comments Mychart Rx Refill 06/20/2022 Encounter Details Date Type Department Care Team Description 06/20/2022 Refill Adult Medicine [address] [address] Rebekah Lynn PA-C Mychart Rx Refill Social History Tobacco Use Types Packs/Day Years Used Date Smoking Tobacco: Never Smokeless Tobacco: Never Alcohol Use Standard Drinks/Week Comments No 0 (1 standard drink = 0.6 oz pur e alcohol) Sex Assigned at Date Recorded Not on file Job Start Date Occupation Industry Not on file Not on file Not on file documented as of this encounter Miscellaneous Notes * Telephone Encounter - Brady Horn M.A. - 06/21/2022 12:47 PM EST Pt sent MyChart msg asking for clarification if she is still using escitalopram. * Telephone Encounter - Monique Allen PA-C - 06/21/2022 9:36 AM EST Lexapro has not been prescribed for >1 year. Monique Allen PA-C * Telephone Encounter - Micheal Moise M.A. - 06/21/2022 8:24 AM EST Last ov 01/08/2022 next ov 07/06/22 & 01/18/23 Lab Results Component Value Date TSH 1.64 01/08/2022 Lab Results Component Value Date NA 141 01/08/2022 K 4.2 01/08/2022 CO2 27 01/08/2022 CL 111 01/08/2022 BUN 9 01/08/2022 CREAT 0.70 01/08/2022 GLU 84 01/08/2022 CA 8.7 01/08/2022 GFR > 60 01/08/2022 documented in this encounter Plan of Treatment Not on file documented as of this encounter Visit Diagnoses Not on filedocumented in this encounter Care Teams Salesperson Burial Plots Relationship Specialty Start Date End Date Loraine Harris MD [address] [place] [address] PCP - General Internal Medicine 10/09/20 documented as of this encounter
--- OUTSIDE RECORDS SUMMARY | 2025-03-22 09:34 | XMS_ITS | Clinical Summary ---
Author Organization [facility] [address] [facility] l[address] Address [address] [place] [address] Phone Care Team Providers Care Wire Drawing Machine Operator Name Role Phone Loraine Harris MD Primary Care Provider [phone] Allergies No known active allergies Medications levothyroxine [...] 4:30 PM EDT Appointment Radiology Department - [address] [phone] Health Maintenance Due Date Last Done Comments [...] Breast cancer risk category Low (<15%) Location: [facility], [address] [place] [address], [address], [phone] Procedure Note Jaclyn Sevilla MD - 06/18/2024 [...] Breast cancer risk category Low (<15%) Location: [facility], [address] [place] [address], [address], [phone] Malathi Boothe MD IMG XR PROCEDURES Final Result * Hepatitis C Screening (10/08/2022) [facility] Hepatitis C Screening abstracted Result [facility] Historical Provider HEALTH MAINTENANCE Final Result * (ABNORMAL) Lipid panel (10/08/2022) [facility] LDL/HDL Ratio 3 0 - 4 Triglycerides 156(A) 0 - 150 mg/dL Cholesterol 212(A) 0 - 200 mg/dL HDL 65 >=40 mg/dL LDL Cholesterol 116(A) 0 - 100 mg/dL Blood Venous blood specimen / Unknown Result [facility] Historical Provider LAB BLOOD ORDERABLES Roz l Result * Cervical Cancer Screening: HPV (09/04/2021) [facility] Cervical Cancer Screening: HPV negative, abstracted Result [facility] Historical Provider HEALTH MAINTENANCE Final Result * Colonoscopy (07/11/2020) [facility] Colonoscopy no interpretation , abstracted Anatomical Region Laterality Modality Other Result [facility] Historical Provider HEALTH MAINTENANCE Final Result from Last 3 Months or Most Recently Relevant to Health Maintenance Insurance [facility] Care Teams Wire Drawing Machine Operator Relationship Specialty Start Date End Date Loraine Harris MD [address] [place] [phone] PCP - General Internal Medicine 10/09/20
--- OUTSIDE RECORDS SUMMARY | 2025-03-22 09:34 | XMS_ITS | Encounter Summary ---
Author Organization [facility] Address [address] [place] [address] Care Team Providers Care Table Worker Name Role Phone Loraine Harris MD Primary Care Provider [phone] Encounter Details Date Type Department Care Team Description 07/06/2022 Telephone Adult Medicine [address] [address] Loraine Harris MD [address] [place] [address] Social History Tobacco Use Types Packs/Day Years Used Date Smoking Tobacco: Never Smokeless Tobacco: Never Alcohol Use Standard Drinks/Week Comments No 0 (1 standard drink = 0.6 oz pur e alcohol) Sex Assigned at Date Recorded Not on file Job Start Date Occupation Industry Not on file Not on file Not on file COVID-19 Exposure Response Date Recorded In the last 10 days, have yo u been in contact with someone who was confirmed or suspected to have Coronavirus/COVID-19? No / Unsure 07/06/2022 3:57 PM EST documented as of this encounter Plan of Treatment Not on file documented as of this encounter Visit Diagnoses Not on filedocumented in this encounter Care Teams Table Worker Relationship Specialty Start Date End Date Loraine Harris MD [address] [place] [address] PCP - General Internal Medicine 10/09/20 documented as of this encounter
--- OUTSIDE RECORDS SUMMARY | 2025-03-22 09:34 | XMS_ITS | Encounter Summary ---
Author Organization [facility] Address [address] [place] [address] Care Team Providers Care Solar Installation Foreman Name Role Phone Loraine Harris MD Primary Care Provider [phone] Reason for Visit * Reason Comments E-prescribe Rx Request Encounter Details Date Type Department Care Team Description 02/19/2022 Refill Adult Medicine [address] [address] Rebekah Lynn PA-C E-prescribe Rx Request Social History Tobacco Use Types Packs/Day Years [...] encounter Miscellaneous Notes * Telephone Encounter - Monique Allen PA-C - 02/19/2022 11:40 AM EDT Refill history suggestive of noncompliance (6-month supply given 10 months ago); please call patient and verify how often she is taking this. Monique Allen PA-C * Telephone Encounter - Lisa Dixon M.A. - 02/19/2022 11:10 AM EDT Lab Results Component Value Date NA 141 01/08/2022 K 4.2 01/08/2022 CO2 27 01/08/2022 CL 111 01/08/2022 BUN 9 01/08/2022 CREAT 0.70 01/08/2022 GLU 84 01/08/2022 CA 8.7 01/08/2022 GFR > 60 01/08/2022 Last appt with Monique Allen, PAC 01/08/22 Pending appt with pcp 12/2022 * Telephone Encounter - Patrica Nunez - 02/19/2022 10:39 AM EDT Patient would like script to be: E-PRESCRIBED/FAXED TO PHARMACY WHEN WAS THE PATIENT'S LAST APPOINTMENT IN ADULT MEDICINE? 04/10/2021 WHEN WAS THE LAST TIME THE PATIENT SAW THEIR PCP? Has not seen pcp yet Does patient have an upcoming appointment? Yes 07/06/2022 (THE MEDICATION REQUESTED IS ON THE MED LIST ABOVE) All of the medications requested were on the CURRENT MEDS list Did you check the Pharmacy information above?: YES Patient wants: 60 -day supply Is this a mail order prescription request ? NO If the refill is from a FAXED refill request what is the RX # listed on the fax? N/A Patients current insurance carrier is: Payor: -[employer] / Plan: HMO $30 [place] [id number] / ProductType: HMO PRE-PAID documented in this encounter Plan of Treatment Not on file documented as of this encounter Visit Diagnoses Not on filedocumented in this encounter Care Teams Solar Installation Foreman Relationship Specialty Start Date End Date Loraine Harris MD [address] [place] [address] PCP - General Internal Medicine 10/09/20 documented as of this encounter
[2025-03-22 11:39] LABS: MANUAL DIFF FLAG NO
[2025-03-22 12:03] LABS: Hematocrit 41.4 % (37.0-47.0); Hemoglobin 13.9 g/dl (12.0-16.0); Imm Gran Abs Auto 0.02 X10*3/uL (0.00-0.03); Imm Gran Pct Auto 0.4 % (0.0-0.4); Lymphocytes Absolute Auto 1.4 X10*3/uL (1.2-4.9); Mean Corpuscular HGB Conc 33.6 g/dl (31.0-35.0); Mean Corpuscular Hemoglobin 31.0 pg (27.0-33.0); Mean Corpuscular Volume 92.4 fL (80.0-98.0); NRBC Abs Auto 0.000 X10*3/uL (0.0-0.012); NRBC Pct Auto 0.0 /100WBC (0.0-0.2); Platelet Count 283 X10*3/uL (160-400); Red Blood Count 4.48 X10*6/uL (4.20-5.50); White Blood Count 5.1 X10*3/uL (4.8-10.8)
[2025-03-22 12:43] LABS: Hemoglobin A1C 127.6081 umol/L; Total Hemoglobin (HGBA1C) 3597.9413 umol/L
[2025-03-22 13:06] LABS: Alanine Aminotransferase 21 U/L (0-31); Albumin Level 4.1 g/dL (3.5-5.0); Alkaline Phosphatase 92 U/L (39-117); Anion Gap 12 (12-20); Aspartate Amino Transferase 27 U/L (5-31); Blood Urea Nitrogen 16 mg/dL (9-16); Calcium 9.1 mg/dL (8.4-10.2); Carbon Dioxide 26 mmol/L (22-29); Chloride 110 mmol/L (96-108); Cholesterol 225 mg/dL (<200); Estimated Glomerular Filt Rate > 60; HDL Cholesterol 61 mg/dL (>40); Iron 89 mcg/dL (30-160); Percent Iron Saturation 33 % (15-50); Potassium 4.1 mmol/L (3.3-5.1); Sodium 144 mmol/L (135-145); Total Iron Binding Capacity 267 mcg/dL (228-428); Total Protein 6.5 g/dL (6.5-8.0); Triglycerides 85 mg/dL (<150); Unsaturated Iron Binding 178 ug/dL
[2025-03-22 13:44] LABS: Folate 9.6 ng/mL (> or = 4.0); Vitamin B12 354 pg/mL (200-900)
[2025-03-23 06:33] LABS: Lyme Abs Screen <0.90 index
[2025-03-26 18:52] LABS: Anti Nuclear Antibody Screen NEGATIVE (NEGATIVE)
== END 2025-03-22 08:37 | disposition home or self-care (01) ==
LOC: HO.WFDLDS 08:36
PROVIDERS: Visit Provider Physician Assistant
DX: R53.83 Other fatigue (principal); F41.8 Other specified anxiety disorders; E03.9 Hypothyroidism, unspecified; N95.1 Menopausal and female climacteric states; M79.641 Pain in right hand; M79.642 Pain in left hand; M25.551 Pain in right hip; M25.552 Pain in left hip; R73.01 Impaired fasting glucose; E78.5 Hyperlipidemia, unspecified; G43.909 Migraine, unspecified, not intractable, without status migrainosus; Z01.84 Encounter for antibody response examination; Z13.1 Encounter for screening for diabetes mellitus
CPT/HCPCS: 36415; 80053; 80061; 82607; 82746; 83036; 83540; 84443; 85025; 85652; 86038; 86431; 86617; 86618

== ENCOUNTER 2025-04-04 08:39 | Outpatient (AMB) | payer OTHER, SELFPAY ==
--- NOTE | 2025-04-04 08:45 | MHC.PC.OV ---
Vital Signs 04/04/25 08:47 Height 5 ft 1.81 in Weight 149 lb BMI 27.4 BP 102/68 Blood Pressure Location Lt brachial Position Sitting Respiration 14 Pulse 92 Pulse Source Pulse Oximeter Pulse Oximetry (%) 98 Oxygen Delivery Method Room Air Intake Visit Reasons: Follow up labs and meds Intake Note: Follow up Health Sciences Manager Required: No Allergies No Known Allergies Allergy (Verified 04/04/25 08:45) Medication List - Last Reconciled 04/04/25 by Chana Maldonado PA-C cholecalciferol (vitamin D3) PO escitalopram oxalate (Lexapro) 20 mg PO DAILY levothyroxine 50 mcg PO DAILY phentermine 15 mg PO DAILY 30 days Tobacco use date assessed: 04/04/25 Dental Screening Dental Screen Date: 09/26/24 HPI Follow up labs and meds HPI Details Patient is a 54-year-old female with a significant past medical history of anxiety, depression, vitamin-D deficiency, hypothyroidism, hyperlipidemia migraines presenting today for a follow up. msk: she states that her joint pains improved. General: She has noticed that the phentermine does cause dry mouth and she thinks yesterday it caused a little increase in anxiety/racing heart but it was tolerable. She did not have any chest pain, shortness on breath or dizziness with this. Her blood pressure today in the office is 102/68. She is happy with this overall and has lost a few lb. Psych: She is currently on Lexapro 20 mg and states that she likes taking it but she is getting hot flashes from her perimenopause symptoms. She is not scheduled to see bank examiner for a few months. Neuro: Has a history of migraines and follow up with [facility] neurology. Migraines were resolved with Lexapro. Endo: Has a history of hypothyroidism and is on levothyroxine 50 mcg daily. Compliant with vitamin-D as she has a history of vitamin-D deficiency. 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 Current occupational exposures/hazards: No Cognitive needs: No Hearing needs: No Vision needs: Yes (glasses) Questionnaire Thrive Questionnaire Date Thrive assessed: 09/25/24 I am a: Patient What is your living situation today?: I have a steady place to live Within the past 12 months, did the food you bought not last and you didn't have the money to get more?: Never true Within the past 12 months, did you worry whether your food would run out before you got money to buy more?: Never true Do you have trouble paying for medicines?: No Do you have trouble getting transportation to medical appointments?: No Do you have trouble paying your heating and electricity bill?: No Do you have trouble taking care of your child, family member or friend?: No Do you have trouble with day-to-day activities such as bathing, preparing meals, shopping, managing finances, etc.?: No Are you currently unemployed and looking for a job?: No Are you interested in more education?: I choose not to answer this question Please select the resources that you would like help with: None Currently or been in a relationship where the following occur: No concerns reported THRIVE Score: 0 AUDIT C Alcohol Use Questionnaire (AUDIT-C) 1. How often do you have a drink containing alcohol?: Never 3. How often do you have six or more drinks on one occasion?: Never Total Score: 0 VIJAY-7 AMB Questionnaire VIJAY-7 Date VIJAY - 7 assessed: 09/26/24 Source: Developed by Drs. Wm Brizuela, Nataliia Ugalde, Baldomero Solis and colleagues, with an educational kei from [employer]. Physical exam (Primary Care) Vital Signs: Last Vital Signs Pulse 92 04/04/25 08:47 Resp 14 04/04/25 08:47 BP 102/68 04/04/25 08:47 Pulse Ox 98 04/04/25 08:47 Oxygen Delivery Method Room Air 04/04/25 08:47 BMI result Body Mass Index 27.4 Tobacco/Smoking Status: Tobacco use Status Tobacco use date assessed 02/28/25 02/28/25 15:21 Patient Tobacco Use Status Never used Tobacco 02/28/25 15:21 e-Cigarette/Vaping Use Never Used 02/28/25 15:21 Thrive Assessment: Date of Thrive Assessment Date Thrive assessed 09/25/24 02/28/25 15:17 Currently or been in a relationship where the following occur: No concerns reported Const Orientation/consciousness: patient oriented x3 HENMT Ears: hearing grossly normal bilaterally Neck Thyroid: Thyroid normal Lymphatic: no lymphadenopathy noted Resp Auscultation: clear to auscultation bilaterally Cardio Rate: regular rate Rhythm: regular rhythm Heart sounds: S1 normal heart sound present and S2 normal heart sound present GI Inspection: Yes normal to inspection Palpation (GI): Soft to palpation and Other GI palpation findings present (nontender, no cva tenderness) Auscultation: normoactive bowel sounds Rectal Exam - Female: deferred Skin General skin exam: no rashes or lesions noted Neuro General: patient oriented x3, gait normal and no focal motor deficits Office Procedures EKG Details: EKG today in the office is normal sinus rhythm at a rate of 76 beats per minute with nonspecific STT wave abnormalities. No prior study to compare. EKG interpreted myself and Dr. Boothe. [id number], Complete Coding Level of Care Code Est Pt Level 4 (83396) Complex EM visit Add On G2211 Diagnoses Anxiety with depression F41.8 Racing heart beat R00.0 Dyslipidemia E78.5 Overweight (BMI 25.0-29.9) E66.3 CPT Codes EKG - CPT: 24835-[id number], Complete ([id number]) Assessment & Plan Assessment & Plan (1) Anxiety with depression: Code(s): F41.8 - Other specified anxiety disorders Category: Medical Plan: We will switch Effexor. Discussed risks and benefits and adverse effects of this medication. Do a short term follow up. Sooner if needed (2) Racing heart beat: Code(s): R00.0 - Tachycardia, unspecified Category: Medical Plan: Currently asymptomatic and thinks related to anxiety. EKG today in the office is normal sinus rhythm at a rate of 76 beats per minute with nonspecific STT wave abnormalities. No prior study to compare. EKG interpreted myself and Dr. Boothe. (3) Dyslipidemia: Code(s): E78.5 - Hyperlipidemia, unspecified Category: Medical Plan: Going to work on diet changes for 6 months (4) Overweight (BMI 25.0-29.9): Code(s): E66.3 - Overweight Category: Medical Plan: Losing weight is phentermine. Continue current regimen Orders: Orders Comprehensive [place]. Panel Fast Today E03.9 - Hypothyroidism, unspecified, E78.5 - Hyperlipidemia, unspecified, F41.8 - Other specified anxiety disorders, R00.0 - Tachycardia, unspecified AMB EKG-In Office Today F41.8 - Other specified anxiety disorders, R00.0 - Tachycardia, unspecified, Z13.6 - Encounter for screening for cardiovascular disorders Lipid Panel Today E03.9 - Hypothyroidism, unspecified, E78.5 - Hyperlipidemia, unspecified, F41.8 - Other specified anxiety disorders, R00.0 - Tachycardia, unspecified Medications: New venlafaxine ER (Effexor XR) 37.5 mg PO BEDTIME 90 caps 0RF Discontinued escitalopram oxalate (Lexapro) Discontinued Reason: Duplicate 20 mg PO DAILY 90 tabs 1RF
[2025-04-04 08:47] VITALS: BP 102/68; PULSE 92; RESP 14; O2SAT 98; BMI 27.4
--- OUTSIDE RECORDS SUMMARY | 2025-04-04 09:42 | XMS_ITS | Clinical Summary ---
Author Organization [facility] [address] [facility] l[address] Address [address] [place] [address] Phone Care Team Providers Care Jewel Bearing Maker Name Role Phone Loraine Harris MD Primary Care Provider [phone] Allergies No known active allergies Medications levothyroxine [...] 4:30 PM EDT Appointment Radiology Department - [address] [phone] Health Maintenance Due Date Last Done Comments Hepatitis B Vaccines (1 of 3 - 19+ 3-dose series) 1988 Pneumococcal Vaccine: 50+ Years (1 of 1 - PCV) 11/10/2019 Zoster Vaccines (1 of 2) 11/10/2019 HIV Screening 07/03/2022 Social Influencers of Health Screening 07/03/2022 Depression Screening 07/25/2024 COVID-19 Vaccine ( season) 2025 12/04/2020, 11/05/2020 Influenza Vaccine (#1) 2025 07/06/2022, 2019 Breast [...] Breast cancer risk category Low (<15%) Location: [facility], [address] [place] [address], [address], [phone] Procedure Note Jaclyn Sevilla MD - 06/18/2024 [...] Breast cancer risk category Low (<15%) Location: [facility], [address] [place] [address], [address], [phone] Malathi Boothe MD IMG XR PROCEDURES Final Result * Hepatitis C Screening (10/08/2022) [facility] Hepatitis C Screening abstracted Result [facility] Historical Provider HEALTH MAINTENANCE Final Result * (ABNORMAL) Lipid panel (10/08/2022) [facility] LDL/HDL Ratio 3 0 - 4 Triglycerides 156(A) 0 - 150 mg/dL Cholesterol 212(A) 0 - 200 mg/dL HDL 65 >=40 mg/dL LDL Cholesterol 116(A) 0 - 100 mg/dL Blood Venous blood specimen / Unknown Result [facility] Historical Provider LAB BLOOD ORDERABLES Roz l Result * Cervical Cancer Screening: HPV (09/04/2021) [facility] Cervical Cancer Screening: HPV negative, abstracted Result [facility] Historical Provider HEALTH MAINTENANCE Final Result * Colonoscopy (07/11/2020) [facility] Colonoscopy no interpretation , abstracted Anatomical Region Laterality Modality Other Result [facility] Historical Provider HEALTH MAINTENANCE Final Result from Last 3 Months or Most Recently Relevant to Health Maintenance Insurance [facility] Care Teams Jewel Bearing Maker Relationship Specialty Start Date End Date Loraine Harris MD [address] [place] [phone] PCP - General Internal Medicine 10/09/20
--- OUTSIDE RECORDS SUMMARY | 2025-04-04 09:42 | XMS_ITS | Clinical Summary ---
Author Organization [facility] Address [address] [place] [address] Care Team Providers Care Sales Agent Food Vending Service Name Role Phone Unavailable Primary Care Provider [...] 11/10/2019 Imm-Zoster, Recombinant (1 of 2) 11/10/2019 Alcohol and Drug Screen 07/25/2024 Depression Annual Screen 07/25/2024 [id number] ( season) 2025 021, 11/05/2020 Imm-Influenza (#1) 2025 06/27/2020 Lipid Screening 08/28/2025 08/28/2020 Cervical Ablation/Cold-Knife Conization Discontinued Cervical Cryotherapy Discontinued Colposcopy Discontinued Endometrial Biopsy Discontinued Excision/Leep Discontinued HPV Genotyping Discontinued Vaginal Pap Discontinued Vulvoscopy Discontinued [place]
== END 2025-04-04 10:20 | disposition home or self-care (01) ==
LOC: HO.HMCFM 08:40
PROVIDERS: PCP Physician Assistant; Visit Provider Physician Assistant
DX: F41.8 Other specified anxiety disorders (principal); R00.0 Tachycardia, unspecified; E78.5 Hyperlipidemia, unspecified; E66.3 Overweight

== ENCOUNTER → 2025-04-04 08:39 | Outpatient (BNVA) | payer OTHER, SELFPAY | PROVIDERS: PCP Physician Assistant; Visit Provider Physician Assistant | DX: F41.8 Other specified anxiety disorders (principal); R00.0 Tachycardia, unspecified; E78.5 Hyperlipidemia, unspecified; E66.3 Overweight; Z68.27 Body mass index [BMI] 27.0-27.9, adult; E03.9 Hypothyroidism, unspecified; Z79.899 Other long term (current) drug therapy | CPT/HCPCS: 93005 ==